=== PATIENT | male | born 1980 | race African-American/Black ===

== ENCOUNTER 2021-01-03 17:29 | Inpatient (IN) | payer OTHER, SELFPAY ==
[2021-01-03 17:45] VITALS: BP 167/87; PULSE 129; RESP 14; O2SAT 91
[2021-01-03] MEDS: Haloperidol Lactate 5 MG/ML VIAL IM ×2 (17:47→20:25)
[2021-01-03] MEDS: diphenhydrAMINE HCL 50 MG/ML VIAL IM (17:48)
[2021-01-03 17:51] VITALS: BP 167/87; BP 178/90; PULSE 111; PULSE 130; RESP 12; O2SAT 95; BMI 32.5
--- NOTE | 2021-01-03 18:12 | PC.NURSE ---
Pt arrived in handcuffs and in restraints with EMS. Pt transferred to ED bed and restraints kept in place. Pt medicated with IM benadryl and haldol. Pt noted to have a large amount of secretions, airway suctioned. Pt is on continuous oxygen, ETco2 and cardiac monitoring. Pt has a sitter at the bedside for continuos observation. Pt continues to pull at the restraints and is very restless.
--- NOTE | 2021-01-03 18:38 | ED.PSYCH ---
HPI - Psych General Chief Complaint: Psychiatric Symptoms <Denzel Diane MD - Last Filed: 01/04/21 01:43> Stated Complaint: crisis <Denzel Diane MD - Last Filed: 01/04/21 01:43> Time Seen by Provider: 01/03/21 17:42 <Denzel Diane MD - Last Filed: 01/04/21 01:43> Source: EMS <Denzel Diane MD - Last Filed: 01/04/21 01:43> Mode of arrival: EMS <Denzel Diane MD - Last Filed: 01/04/21 01:43> Limitations: altered mental status <Denzel Diane MD - Last Filed: 01/04/21 01:43> History of Present Illness HPI Narrative: 40-year-old male who was brought into the emergency department by EMS and police for evaluation of attempted suicide attempt and combative behavior. Apparently, the patient was spotted by the police on a bridge and the patient was trying to jump off the bridge. A precinct police lieutenant was able to stop the patient from jumping however the patient became combative and 6 officers were required to get the patient under control. Paramedics then administered ketamine 400 mg IM. According to the paramedics despite the ketamine the patient still was combative throughout the entire transport. On presentation, the patient is handcuffed, he is combative, he is altered and making non verbal grunting and growling noises, he is fighting against the handcuffs. I evaluated the patient immediately upon arrival and I determined that the patient still needed to be in restraints and needed further medications therefore with security and police assistance, the handcuffs removed, the patient was placed in 4 point restraints on the ED stretcher , he was given Haldol 5 mg IM and Benadryl 50 mg IM. <Denzel Diane MD - Last Filed: 01/04/21 01:43> Related Data Allergies/Adverse Reactions: Allergies Allergy/AdvReac Type Severity Reaction Status Date / Time acetaminophen [From VICODIN] Allergy Unknown ITCHY Unverified 12/31/19 14:47 From VICODIN Allergy Unknown ITCHY Uncoded 12/31/19 14:47 <Denzel Diane MD - Last Filed: 01/04/21 01:43> Review of Systems Review of Systems: Yes Unobtainable due to mental status <Denzel Diane MD - Last Filed: 01/04/21 01:43> [facility] Social History Social History: Social History Alcohol intake: unknown Patient Tobacco Use Status: Tobacco use Unknown Use of substances other than those prescribed or required for medical reasons: Unknown Advance Directives: No Advance Directives Information Provided: No <Denzel Diane MD - Last Filed: 01/04/21 01:43> Physical Exam Vital Signs: Vital Signs: Last Vital Signs Temp 98 F 01/03/21 20:00 Pulse 83 01/04/21 07:40 Resp 18 01/04/21 07:40 BP 169/99 H 01/04/21 07:40 Pulse Ox 97 01/04/21 07:40 Oxygen Flow Rate 4 01/03/21 17:51 Body Mass Index 32.5 <Denzel Diane MD - Last Filed: 01/04/21 01:43> Vital Signs: Last Vital Signs Temp 98 F 01/03/21 20:00 Pulse 83 01/04/21 07:40 Resp 18 01/04/21 07:40 BP 169/99 H 01/04/21 07:40 Pulse Ox 97 01/04/21 07:40 Oxygen Flow Rate 4 01/03/21 17:51 Body Mass Index 32.5 <RAN Jeffers - Last Filed: 01/04/21 09:57> Const: Other: Altered, male patient, the patient is diaphoretic, he is struggling against the handcuffs, he is making non verbal noises-growling and is trying to get off the stretcher and needs to be held down by police and by security. <Denzel Diane MD - Last Filed: 01/04/21 01:43> HENMT: Head: Yes normal to inspection, Yes normocephalic and Yes atraumatic <Denzel Diane MD - Last Filed: 01/04/21 01:43> Ears: external ears normal <Denzel Diane MD - Last Filed: 01/04/21 01:43> General nose exam: Normal external nose present <MD Diana Chavis Last Filed: 01/04/21 01:43> Face and sinus: Yes normal facial exam <MD Diana Chavis Last Filed: 01/04/21 01:43> Mouth: other (Patient is salivating and spitting) <MD Diana Chavis Last Filed: 01/04/21 01:43> Eyes: General: appearance normal, both eyes and all related structures <MD Diana Chavis Last Filed: 01/04/21 01:43> Conjunctivae: conjunctivae normal <MD Diana Chavis Last Filed: 01/04/21 01:43> Sclerae: sclerae normal <MD Diana Chavis Last Filed: 01/04/21 01:43> Pupils: Equal, round and reactive pupils present <MD Diana Chavis Last Filed: 01/04/21 01:43> Neck: Neck: Yes normal visual inspection, Yes no meningeal signs and Yes trachea midline <MD Diana Chavis Last Filed: 01/04/21 01:43> Chest: Chest palpation & inspection: normal inspection of the chest and normal palpation of entire chest wall <MD Diana Chavis Last Filed: 01/04/21 01:43> Resp: Effort & Inspection: normal respiratory effort <MD Diana Chavis Last Filed: 01/04/21 01:43> Auscultation: clear to auscultation bilaterally <MD Diana Chavis Last Filed: 01/04/21 01:43> Cardio: Rate: tachycardic <MD Diana Chavis Last Filed: 01/04/21 01:43> Rhythm: regular rhythm <MD Diana Chavis Last Filed: 01/04/21 01:43> Heart sounds: S1 normal heart sound present, S2 normal heart sound present and no murmurs <MD Diana Chavis Last Filed: 01/04/21 01:43> GI: Inspection: Yes normal to inspection <MD Diana Chavis Last Filed: 01/04/21 01:43> Palpation (GI): Soft to palpation, no guarding and not rigid <Denzel Diane MD - Last Filed: 01/04/21 01:43> Auscultation: normal bowel sounds <Denzel Diane MD - Last Filed: 01/04/21 01:43> Skin: Other: Diaphoretic, warm to the touch, no rashes or lesions noted <Denzel Diane MD - Last Filed: 01/04/21 01:43> Neuro: Other: Patient is altered secondary to ketamine administered prior to arrival, patient is combative, moves all extremities symmetrically, makes non verbal noises only, does not answer verbal questions <Denzel Diane MD - Last Filed: 01/04/21 01:43> General: no meningeal signs <MD Diana Chavis Last Filed: 01/04/21 01:43> Cranial nerves: Yes Equal, round and reactive pupils present <MD Diana Chavis Last Filed: 01/04/21 01:43> Extrem: General: Yes normal to inspection <Denzel Diane MD - Last Filed: 01/04/21 01:43> Course Course Course Narrative: 40-year-old male who was attempting to jump off a bridge and was stopped by police, the patient was combative and required 6 police officers to restrain him. The patient also received ketamine 400 mg IM prior to arriving in the emergency department secondary to his combative behavior. On presentation the patient was in handcuffs but still was fighting against the restraints and still appeared to be combative but altered secondary to the ketamine. The patient was transferred to the ED stretcher and placed in 4 point restraints by by security with the assistance of the police officers that came into the apartment with the patient. The patient was immediately given Haldol 5 mg IM and Benadryl 50 mg IM. 1845: Patient was re-evaluated, he is less combative but is still fighting against restraints therefore he was ordered to get a 2nd dose of Haldol 5 mg IM. I did order laboratory evaluation as well as IV fluid for the patient however he is still to combative to start this treatment obtain his lab tests. 2110: Patient's laboratory evaluation revealed a normal CBC, CMP revealed an elevated chloride of 111, elevated glucose 129, elevated AST and ALT of 46 and 50, and an elevated CK of 540. I do not think that any these elevations are significant, elevated CK is probably secondary to the patient's struggling against the restraints and fighting with the paramedics and police officers prior to coming to the emergency department. The patient was taken out of 4 point restraints by nursing staff and has been sleeping and has been cooperative since being removed from restraints. The patient's salicylate and acetaminophen levels were below detectable limits. Alcohol level was elevated 218. COVID-19 was negative. Urine tox screen is pending collection of the urine sample. At this point I believe the patient is medically cleared for crisis evaluation for suicidal ideation and suicide attempt at of jumping off a bridge. 0142: Physician observation started at 0142. Patient placed in physician observation because the patient has not been evaluated by [facility] crisis. At the time observation the patient is resting comfortably and is cooperative, vital signs are stable, his examination is normal. The patient's care will be turned over to my colleague, Dr. Jernigan. <Denzel Diane MD - Last Filed: 01/04/21 01:43> Reevaluation(s) Reevaluation #1: Physician observation continued. No acute overnight events. Has not required IM Haldol or Benadryl since 6pm last night. He is awaiting [facility] evaluation at this time. Sleeping comfortably. Sitter at the bedside. Will continue to monitor. <RAN Jeffers - Last Filed: 01/04/21 09:57> MDM - Psych Lab Data Result diagrams: : 01/03/21 19:57 01/03/21 19:57 <Denzel Diane MD - Last Filed: 01/04/21 01:43> Labs: Lab Results 01/03/21 01/03/21 01/03/21 Range/Units 19:49 19:56 19:57 WBC 6.6 (4.8-10.8) X10*3/uL RBC 4.53 L (4.60-5.80) X10*6/uL Hgb 14.1 (14.0-18.0) g/dl Hct 40.0 L (42-52) % MCV 88.3 (80-98) fL MCH 31.1 (27.0-33.0) pg MCHC 35.3 (31.0-36.0) g/dl RDW 12.4 (11.0-16.0) % Plt Count 213 (160-400) X10*3/uL MPV 9.9 (9.4-12.4) fL Immature Gran % (Auto) 0.6 H (0.0-0.4) % Neut % (Auto) 69.9 (45-73) % Lymph % (Auto) 19.5 L (20-40) % Hinds % (Auto) 8.5 (2-11) % Eos % (Auto) 1.2 (0-4) % Baso % (Auto) 0.3 (0-2) % Lymph # (Auto) 1.3 (1.2-4.9) X10*3/uL Hinds # (Auto) 0.6 (0.1-1.2) X10*3/uL Eos # (Auto) 0.1 (0.0-0.4) X10*3/uL Baso # (Auto) 0.0 (0.0-0.2) X10*3/uL Abs Immat Gran (auto) 0.04 H (0.00-0.03) X10*3/uL Absolute Neuts (auto) 4.6 (2.0-8.3) X10*3/uL Absolute Nucleated RBC 0.000 (0.0-0.012) X10*3/uL Nucleated RBC % (auto) 0.0 (0.0-0.2) /100WBC Sodium (135-145) mmol/L Potassium (3.3-5.1) mmol/L Chloride (96-108) mmol/L Carbon Dioxide (22-29) mmol/L Anion Gap (12-20) BUN (9-16) mg/dL Creatinine (0.5-1.4) mg/dL Estim Creat Clear Calc Estimated GFR Random Glucose (60-115) mg/dL Calcium (8.4-10.2) mg/dL Total Bilirubin (0.0-1.0) mg/dL AST (5-37) U/L ALT (0-40) U/L Alkaline Phosphatase (39-117) U/L Total Creatine Kinase (38-174) U/L Total Protein (6.5-8.0) g/dL Albumin (3.5-5.0) g/dL Lipase (8-78) U/L Salicylates < 5.0 L (15-30) mg/dL Urine Opiates Screen (Not Detect) Urine Fentanyl Screen (Not Detect) Acetaminophen (<30) mcg/mL Ur Barbiturates Screen (Not Detect) Ur Phencyclidine Scrn (Not Detect) Ur Amphetamines Screen (Not Detect) U Benzodiazepines Scrn (Not Detect) Urine Cocaine Screen (Not Detect) U Marijuana (THC) Screen (Not Detect) Ethyl Alcohol mg/dL COVID-19 (CLARA) Negative (Negative) COVID-19 Clin Com See Note 01/03/21 01/03/21 01/03/21 Range/Units 19:57 19:57 19:57 WBC (4.8-10.8) X10*3/uL RBC (4.60-5.80) X10*6/uL Hgb (14.0-18.0) g/dl Hct (42-52) % MCV (80-98) fL MCH (27.0-33.0) pg MCHC (31.0-36.0) g/dl RDW (11.0-16.0) % Plt Count (160-400) X10*3/uL MPV (9.4-12.4) fL Immature Gran % (Auto) (0.0-0.4) % Neut % (Auto) (45-73) % Lymph % (Auto) (20-40) % Hinds % (Auto) (2-11) % Eos % (Auto) (0-4) % Baso % (Auto) (0-2) % Lymph # (Auto) (1.2-4.9) X10*3/uL Hinds # (Auto) (0.1-1.2) X10*3/uL Eos # (Auto) (0.0-0.4) X10*3/uL Baso # (Auto) (0.0-0.2) X10*3/uL Abs Immat Gran (auto) (0.00-0.03) X10*3/uL Absolute Neuts (auto) (2.0-8.3) X10*3/uL Absolute Nucleated RBC (0.0-0.012) X10*3/uL Nucleated RBC % (auto) (0.0-0.2) /100WBC Sodium 144 (135-145) mmol/L Potassium 3.3 (3.3-5.1) mmol/L Chloride 111 H (96-108) mmol/L Carbon Dioxide 22 (22-29) mmol/L Anion Gap 14 (12-20) BUN 7 L (9-16) mg/dL Creatinine 0.90 (0.5-1.4) mg/dL Estim Creat Clear Calc 141.9 Estimated GFR > 60 Random Glucose 129 H (60-115) mg/dL Calcium 8.7 (8.4-10.2) mg/dL Total Bilirubin 0.6 (0.0-1.0) mg/dL AST 46 H (5-37) U/L ALT 50 H (0-40) U/L Alkaline Phosphatase 63 (39-117) U/L Total Creatine Kinase 540 H (38-174) U/L Total Protein 7.1 (6.5-8.0) g/dL Albumin 4.3 (3.5-5.0) g/dL Lipase 15 (8-78) U/L Salicylates (15-30) mg/dL Urine Opiates Screen (Not Detect) Urine Fentanyl Screen (Not Detect) Acetaminophen < 1 (<30) mcg/mL Ur Barbiturates Screen (Not Detect) Ur Phencyclidine Scrn (Not Detect) Ur Amphetamines Screen (Not Detect) U Benzodiazepines Scrn (Not Detect) Urine Cocaine Screen (Not Detect) U Marijuana (THC) Screen (Not Detect) Ethyl Alcohol 218 mg/dL COVID-19 (CLARA) (Negative) COVID-19 Clin Com 01/04/21 Range/Units 02:52 WBC (4.8-10.8) X10*3/uL RBC (4.60-5.80) X10*6/uL Hgb (14.0-18.0) g/dl Hct (42-52) % MCV (80-98) fL MCH (27.0-33.0) pg MCHC (31.0-36.0) g/dl RDW (11.0-16.0) % Plt Count (160-400) X10*3/uL MPV (9.4-12.4) fL Immature Gran % (Auto) (0.0-0.4) % Neut % (Auto) (45-73) % Lymph % (Auto) (20-40) % Hinds % (Auto) (2-11) % Eos % (Auto) (0-4) % Baso % (Auto) (0-2) % Lymph # (Auto) (1.2-4.9) X10*3/uL Hinds # (Auto) (0.1-1.2) X10*3/uL Eos # (Auto) (0.0-0.4) X10*3/uL Baso # (Auto) (0.0-0.2) X10*3/uL Abs Immat Gran (auto) (0.00-0.03) X10*3/uL Absolute Neuts (auto) (2.0-8.3) X10*3/uL Absolute Nucleated RBC (0.0-0.012) X10*3/uL Nucleated RBC % (auto) (0.0-0.2) /100WBC Sodium (135-145) mmol/L Potassium (3.3-5.1) mmol/L Chloride (96-108) mmol/L Carbon Dioxide (22-29) mmol/L Anion Gap (12-20) BUN (9-16) mg/dL Creatinine (0.5-1.4) mg/dL Estim Creat Clear Calc Estimated GFR Random Glucose (60-115) mg/dL Calcium (8.4-10.2) mg/dL Total Bilirubin (0.0-1.0) mg/dL AST (5-37) U/L ALT (0-40) U/L Alkaline Phosphatase (39-117) U/L Total Creatine Kinase (38-174) U/L Total Protein (6.5-8.0) g/dL Albumin (3.5-5.0) g/dL Lipase (8-78) U/L Salicylates (15-30) mg/dL Urine Opiates Screen Not Detected (Not Detect) Urine Fentanyl Screen POSITIVE H (Not Detect) Acetaminophen (<30) mcg/mL Ur Barbiturates Screen Not Detected (Not Detect) Ur Phencyclidine Scrn Not Detected (Not Detect) Ur Amphetamines Screen Not Detected (Not Detect) U Benzodiazepines Scrn Not Detected (Not Detect) Urine Cocaine Screen POSITIVE H (Not Detect) U Marijuana (THC) Screen Not Detected (Not Detect) Ethyl Alcohol mg/dL COVID-19 (CLARA) (Negative) COVID-19 Clin Com <Denzel Diane MD - Last Filed: 01/04/21 01:43> Lab Results 01/03/21 01/03/21 01/03/21 Range/Units 19:49 19:56 19:57 WBC 6.6 (4.8-10.8) X10*3/uL RBC 4.53 L (4.60-5.80) X10*6/uL Hgb 14.1 (14.0-18.0) g/dl Hct 40.0 L (42-52) % MCV 88.3 (80-98) fL MCH 31.1 (27.0-33.0) pg MCHC 35.3 (31.0-36.0) g/dl RDW 12.4 (11.0-16.0) % Plt Count 213 (160-400) X10*3/uL MPV 9.9 (9.4-12.4) fL Immature Gran % (Auto) 0.6 H (0.0-0.4) % Neut % (Auto) 69.9 (45-73) % Lymph % (Auto) 19.5 L (20-40) % Hinds % (Auto) 8.5 (2-11) % Eos % (Auto) 1.2 (0-4) % Baso % (Auto) 0.3 (0-2) % Lymph # (Auto) 1.3 (1.2-4.9) X10*3/uL Hinds # (Auto) 0.6 (0.1-1.2) X10*3/uL Eos # (Auto) 0.1 (0.0-0.4) X10*3/uL Baso # (Auto) 0.0 (0.0-0.2) X10*3/uL Abs Immat Gran (auto) 0.04 H (0.00-0.03) X10*3/uL Absolute Neuts (auto) 4.6 (2.0-8.3) X10*3/uL Absolute Nucleated RBC 0.000 (0.0-0.012) X10*3/uL Nucleated RBC % (auto) 0.0 (0.0-0.2) /100WBC Sodium (135-145) mmol/L Potassium (3.3-5.1) mmol/L Chloride (96-108) mmol/L Carbon Dioxide (22-29) mmol/L Anion Gap (12-20) BUN (9-16) mg/dL Creatinine (0.5-1.4) mg/dL Estim Creat Clear Calc Estimated GFR Random Glucose (60-115) mg/dL Calcium (8.4-10.2) mg/dL Total Bilirubin (0.0-1.0) mg/dL AST (5-37) U/L ALT (0-40) U/L Alkaline Phosphatase (39-117) U/L Total Creatine Kinase (38-174) U/L Total Protein (6.5-8.0) g/dL Albumin (3.5-5.0) g/dL Lipase (8-78) U/L Salicylates < 5.0 L (15-30) mg/dL Urine Opiates Screen (Not Detect) Urine Fentanyl Screen (Not Detect) Acetaminophen (<30) mcg/mL Ur Barbiturates Screen (Not Detect) Ur Phencyclidine Scrn (Not Detect) Ur Amphetamines Screen (Not Detect) U Benzodiazepines Scrn (Not Detect) Urine Cocaine Screen (Not Detect) U Marijuana (THC) Screen (Not Detect) Ethyl Alcohol mg/dL COVID-19 (CLARA) Negative (Negative) COVID-19 Clin Com See Note 01/03/21 01/03/21 01/03/21 Range/Units 19:57 19:57 19:57 WBC (4.8-10.8) X10*3/uL RBC (4.60-5.80) X10*6/uL Hgb (14.0-18.0) g/dl Hct (42-52) % MCV (80-98) fL MCH (27.0-33.0) pg MCHC (31.0-36.0) g/dl RDW (11.0-16.0) % Plt Count (160-400) X10*3/uL MPV (9.4-12.4) fL Immature Gran % (Auto) (0.0-0.4) % Neut % (Auto) (45-73) % Lymph % (Auto) (20-40) % Hinds % (Auto) (2-11) % Eos % (Auto) (0-4) % Baso % (Auto) (0-2) % Lymph # (Auto) (1.2-4.9) X10*3/uL Hinds # (Auto) (0.1-1.2) X10*3/uL Eos # (Auto) (0.0-0.4) X10*3/uL Baso # (Auto) (0.0-0.2) X10*3/uL Abs Immat Gran (auto) (0.00-0.03) X10*3/uL Absolute Neuts (auto) (2.0-8.3) X10*3/uL Absolute Nucleated RBC (0.0-0.012) X10*3/uL Nucleated RBC % (auto) (0.0-0.2) /100WBC Sodium 144 (135-145) mmol/L Potassium 3.3 (3.3-5.1) mmol/L Chloride 111 H (96-108) mmol/L Carbon Dioxide 22 (22-29) mmol/L Anion Gap 14 (12-20) BUN 7 L (9-16) mg/dL Creatinine 0.90 (0.5-1.4) mg/dL Estim Creat Clear Calc 141.9 Estimated GFR > 60 Random Glucose 129 H (60-115) mg/dL Calcium 8.7 (8.4-10.2) mg/dL Total Bilirubin 0.6 (0.0-1.0) mg/dL AST 46 H (5-37) U/L ALT 50 H (0-40) U/L Alkaline Phosphatase 63 (39-117) U/L Total Creatine Kinase 540 H (38-174) U/L Total Protein 7.1 (6.5-8.0) g/dL Albumin 4.3 (3.5-5.0) g/dL Lipase 15 (8-78) U/L Salicylates (15-30) mg/dL Urine Opiates Screen (Not Detect) Urine Fentanyl Screen (Not Detect) Acetaminophen < 1 (<30) mcg/mL Ur Barbiturates Screen (Not Detect) Ur Phencyclidine Scrn (Not Detect) Ur Amphetamines Screen (Not Detect) U Benzodiazepines Scrn (Not Detect) Urine Cocaine Screen (Not Detect) U Marijuana (THC) Screen (Not Detect) Ethyl Alcohol 218 mg/dL COVID-19 (CLARA) (Negative) COVID-19 Clin Com 01/04/21 Range/Units 02:52 WBC (4.8-10.8) X10*3/uL RBC (4.60-5.80) X10*6/uL Hgb (14.0-18.0) g/dl Hct (42-52) % MCV (80-98) fL MCH (27.0-33.0) pg MCHC (31.0-36.0) g/dl RDW (11.0-16.0) % Plt Count (160-400) X10*3/uL MPV (9.4-12.4) fL Immature Gran % (Auto) (0.0-0.4) % Neut % (Auto) (45-73) % Lymph % (Auto) (20-40) % Hinds % (Auto) (2-11) % Eos % (Auto) (0-4) % Baso % (Auto) (0-2) % Lymph # (Auto) (1.2-4.9) X10*3/uL Hinds # (Auto) (0.1-1.2) X10*3/uL Eos # (Auto) (0.0-0.4) X10*3/uL Baso # (Auto) (0.0-0.2) X10*3/uL Abs Immat Gran (auto) (0.00-0.03) X10*3/uL Absolute Neuts (auto) (2.0-8.3) X10*3/uL Absolute Nucleated RBC (0.0-0.012) X10*3/uL Nucleated RBC % (auto) (0.0-0.2) /100WBC Sodium (135-145) mmol/L Potassium (3.3-5.1) mmol/L Chloride (96-108) mmol/L Carbon Dioxide (22-29) mmol/L Anion Gap (12-20) BUN (9-16) mg/dL Creatinine (0.5-1.4) mg/dL Estim Creat Clear Calc Estimated GFR Random Glucose (60-115) mg/dL Calcium (8.4-10.2) mg/dL Total Bilirubin (0.0-1.0) mg/dL AST (5-37) U/L ALT (0-40) U/L Alkaline Phosphatase (39-117) U/L Total Creatine Kinase (38-174) U/L Total Protein (6.5-8.0) g/dL Albumin (3.5-5.0) g/dL Lipase (8-78) U/L Salicylates (15-30) mg/dL Urine Opiates Screen Not Detected (Not Detect) Urine Fentanyl Screen POSITIVE H (Not Detect) Acetaminophen (<30) mcg/mL Ur Barbiturates Screen Not Detected (Not Detect) Ur Phencyclidine Scrn Not Detected (Not Detect) Ur Amphetamines Screen Not Detected (Not Detect) U Benzodiazepines Scrn Not Detected (Not Detect) Urine Cocaine Screen POSITIVE H (Not Detect) U Marijuana (THC) Screen Not Detected (Not Detect) Ethyl Alcohol mg/dL COVID-19 (CLARA) (Negative) COVID-19 Clin Com <RAN Jeffers - Last Filed: 01/04/21 09:57> Discharge Plan Discharge Clinical Impression: Suicidal ideation <Denzel Diane MD - Last Filed: 01/04/21 01:43>
--- NOTE | 2021-01-03 19:47 | PC.NURSE ---
Patient is currently asleep. Will trial a restraint removal of left leg
--- NOTE | 2021-01-03 19:53 | PC.NURSE ---
Patient agreeable to labs being drawn. Will trial a restraint release post blood draw.
[2021-01-03 20:00] VITALS: BP 119/84; PULSE 98; RESP 20; TEMP 36.6; O2SAT 98
[2021-01-03 20:04] LABS: MANUAL DIFF FLAG NO
[2021-01-03 20:06] LABS: Basophils Percent Auto 0.3 % (0-2); Eosinophils Absolute Auto 0.1 X10*3/uL (0.0-0.4); Eosinophils Percent Auto 1.2 % (0-4); Hemoglobin 14.1 g/dl (14.0-18.0); Imm Gran Abs Auto 0.04 X10*3/uL (0.00-0.03); Imm Gran Pct Auto 0.6 % (0.0-0.4); Lymphocytes Absolute Auto 1.3 X10*3/uL (1.2-4.9); Lymphocytes Percent Auto 19.5 % (20-40); Mean Corpuscular HGB Conc 35.3 g/dl (31.0-36.0); Mean Corpuscular Hemoglobin 31.1 pg (27.0-33.0); Mean Corpuscular Volume 88.3 fL (80-98); Mean Platelet Volume 9.9 fL (9.4-12.4); Monocytes Absolute Auto 0.6 X10*3/uL (0.1-1.2); Monocytes Percent Auto 8.5 % (2-11); Neutrophils Absolute Auto 4.6 X10*3/uL (2.0-8.3); Neutrophils Percent Auto 69.9 % (45-73); Platelet Count 213 X10*3/uL (160-400); Red Blood Count 4.53 X10*6/uL (4.60-5.80); Red Cell Distribution Width 12.4 % (11.0-16.0); White Blood Count 6.6 X10*3/uL (4.8-10.8)
[2021-01-03 20:18] LABS: Ethanol 218 mg/dL
[2021-01-03 20:20] LABS: Salicylate < 5.0 mg/dL (15-30)
[2021-01-03 20:20] LABS: Lipase 15 U/L (8-78)
[2021-01-03 20:22] LABS: Acetaminophen LAB < 1 mcg/mL (<30); Alanine Aminotransferase 50 U/L (0-40); Albumin Level 4.3 g/dL (3.5-5.0); Alkaline Phosphatase 63 U/L (39-117); Anion Gap 14 (12-20); Aspartate Amino Transferase 46 U/L (5-37); Bilirubin Total 0.6 mg/dL (0.0-1.0); Blood Urea Nitrogen 7 mg/dL (9-16); Calcium 8.7 mg/dL (8.4-10.2); Carbon Dioxide 22 mmol/L (22-29); Chloride 111 mmol/L (96-108); Creatinine Clr Calc Pharmacy 141.9; Estimated Glomerular Filt Rate > 60; Glucose Random 129 mg/dL (60-115); Potassium 3.3 mmol/L (3.3-5.1); Sodium 144 mmol/L (135-145); Total Protein 7.1 g/dL (6.5-8.0)
[2021-01-03 20:25] LABS: COVID-19 Test Negative (Negative)
[2021-01-03 22:00] VITALS: BP 119/84; PULSE 94; RESP 28
[2021-01-04] VITALS (8 sets, daily range): BP systolic 100–169; BP diastolic 64–99; PULSE 77–94; RESP 14–18; TEMP 36.6–37.1; O2SAT 96–98
--- NOTE | 2021-01-04 | ECG_ITS ---
Test Reason : MED CLEARANCE Blood Pressure : / mmHG Vent. Rate : 078 BPM Atrial Rate : 078 BPM P-R Int : 150 ms QRS Dur : 096 ms QT Int : 372 ms P-R-T Axes : 033 -30 037 degrees QTc Int : 424 ms Normal sinus rhythm Left axis deviation Abnormal ECG No previous ECGs available Referred By: Graeme Llanos Electronically Signed By:BRANDON WOLFF
[2021-01-04 03:16] LABS: Amphetamine Screen Urine Not Detected (Not Detect); Barbiturates, Urine Not Detected (Not Detect); Benzodiazepines Screen Urine Not Detected (Not Detect); Cannabinoid Screen Urine Not Detected (Not Detect); Cocaine Screen Urine POSITIVE (Not Detect); Fentanyl, urine POSITIVE (Not Detect); Opiate Screen Urine Not Detected (Not Detect); Phencyclidine Screen Urine Not Detected (Not Detect)
--- NOTE | 2021-01-04 07:30 | PC.NURSE ---
PT IS SLEEPING RESP EVEN AND UNLABORED. 1:1 SITTER AT BEDSIDE.
--- NOTE | 2021-01-04 07:45 | PC.NURSE ---
pt a/o x 3 no sob/ver[place] noted skin pink warm dry speaks in full sentences. pt ate 100% of breakfast. pt denies any si/hi.
--- NOTE | 2021-01-04 08:20 | PC.NURSE ---
paperwork faxed annika.
[2021-01-04] MEDS: LORazepam 1 MG TABLET 2 MG PO ×2 (12:37→21:21)
--- NOTE | 2021-01-04 19:58 | PC.ADMIT ---
Nursing admission note: Patient 40 year old male DX: Major Depressive disorder, Cocaine use disorder. Referred for admission by CARE team. Signed conditional voluntary. Patient engages however vague with responses. Responds to questions however offers little spontaneous interaction. Patient presented as sleepy, appearing to nod off during interview. Easily aroused when named was called. Patient is A+O x3. Calm and cooperative with admission process. Intermittent eye contact. Patient denies SI/HI plan or intent at this time. Denies anxiety or depression. Denies perceptual disturbances. Per crisis evaluation patient was brought to ED by EMS and police for evaluation following what appeared to be a suicide attempt, followed by combative behavior. Patient appeared to be preparing to jump off a bridge as responding police officers arrived to the scene. Patient required physical and chemical restraint at the time, and following arrival to ED. Patient Patient reports use of pain medication and alcohol. States he drinks throughout the day, 10 nips , almost daily . Last use prior to admission. TOX screen positive for Fentanyl and Cocaine. BAL 218. Reports he has used Suboxone in the past. Denies current treatment providers. Denies prior inpatient admissions, per crisis evaluation prior suicide attempt 4 years ago. Denies medical problems, denies having PCP. Allergy to Acetaminophen and vicoden. Reports he is not currently on medication. COVID negative. No reported withdrawal sx at this time. Patient was oriented to unit, placed on CIWA and unit checks. See nursing assessment/crisis evaluation for further details.
[2021-01-04] MEDS: traZODone HCL 50 MG TABLET PO (21:21)
[2021-01-04] MEDS: hydrOXYzine HCL 25 MG TABLET PO (21:21)
[2021-01-05 08:33] VITALS: BP 140/70; PULSE 67; RESP 16; TEMP 36.8; O2SAT 95
[2021-01-05] MEDS: Loperamide HCl 2 MG CAPSULE PO (08:39)
[2021-01-05 12:00] VITALS: BP 155/107; PULSE 107; RESP 18
[2021-01-05 12:48] VITALS: BP 155/104; PULSE 107
[2021-01-05] MEDS: Dicyclomine HCl 10 MG CAPSULE PO (12:48)
[2021-01-05] MEDS: LORazepam 1 MG TABLET 2 MG PO ×2 (12:48→21:07)
[2021-01-05] MEDS: cloNIDine HCL 0.1 MG TABLET PO ×2 (12:48→21:07)
[2021-01-05] MEDS: Ibuprofen 800 MG TABLET PO ×2 (12:49→21:07)
[2021-01-05] MEDS: methADONE HCl 20 MG/2 ML ORAL.CONC PO (15:47)
[2021-01-05 16:00] VITALS: BP 180/107; PULSE 107; RESP 16
--- NOTE | 2021-01-05 16:22 | MHC.RECOVRN ---
T/w met with pt in consult room on M3 after consult placed to Addiction Medicine. Pt reports age of 1st opiate use was 27 after knee injury, pt has never used substances IV. Pt denies family hx substance use. Pt reports using 20-25 Perc 30s daily x 1 year, last use Saturday; alcohol, 40-50 nips daily x a few years , last use Saturday; cocaine, [place], $20-$30 here and there, last use Saturday. Pt reports having been on and off Suboxone for years, most recently pt reports being prescribed 24 mg daily x 2 years through [facility] in [place] approx 2 years ago. Pt attempted to transition to methadone at [facility], however, was unaware he would have to go daily. Pt reports going a few times and receiving 120 mg. This was also approx 2 years ago. Pt reports treatment hx: [facility] x 2, [facility] x 4. Last time in treatment was . Pt reports 4 overdoses requiring Narcan, last in mid 2019. Pts current withdrawal symptoms include body aches, hot/cold flashes, and diarrhea. Pt would like to be linked to [facility] and has a picture ID. Discussed with Renea Talamantes APRN. .
--- NOTE | 2021-01-05 18:14 | HO.PSYADMNOT ---
HPI Chief Complaint: suicide attempt HPI Narrative: per ED Note: 40-year-old male who was brought into the emergency department by EMS and police for evaluation of attempted suicide attempt and combative behavior.? Apparently, the patient was spotted by the police on a bridge and the patient was trying to jump off the bridge.? A [place] 9 police officer was able to stop the patient from jumping however the patient became combative and 6 officers were required to get the patient under control.? Paramedics then administered ketamine 400 mg IM.? According to the paramedics despite the ketamine the patient still was combative throughout the entire transport.? On presentation, the patient is handcuffed, he is combative, he is altered and making non verbal grunting and growling noises, he is fighting against the handcuffs.? I evaluated the patient immediately upon arrival and I determined that the patient still needed to be in restraints and needed further medications therefore with security and police assistance, the handcuffs removed, the patient was placed in 4 point restraints on the ED stretcher , he was given Haldol 5 mg IM and Benadryl 50 mg IM. on interview with MD on psych floor, pt presents with a certain insouciance. he minimizes events and shrugs off any concern for anxiety or depression. he expresses interest in symptomatic relief of his opioid withdrawal syndrome and aftercare with a methadone or suboxone clinic. he states the events of the other night were just about having bought drugs from someone he'd never bought from before. he c/o nausea, diarrhea, cramps, and vomiting. he states he has been using opioids daily recently and cocaine not as much. Past Psychiatric History: no h/o psych hosp h/o SA x1 about 4 years ago via overdose. per pt, this was accidental. denies any trauma Hx, h/o depression, anxiety, or psychosis. no outpt mental health Tx. Medical Evaluation Reviewed: Yes [facility] Social History: grew up in [place], [place]. lived with mother and two sisters. 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 currently unemployed. engaged to be . has two sons at home, 7 yo and 2 yo. Substance History: opioids - h/o methadone maintenance, h/o suboxone maintenance. recent heavy use. cocaine - pt reports intermittent use Trauma History: denies Diagnostics Vital Signs (24Hr): Vital Signs - 24 hr 01/04/21 21:39 01/05/21 08:33 01/05/21 12:00 Temperature 97.9 F 98.2 F Pulse Rate 94 67 107 H Respiratory Rate 16 18 Blood Pressure 164/94 H 140/70 H 155/107 H Pulse Oximetry 97 95 01/05/21 12:48 01/05/21 16:00 Temperature Pulse Rate 107 H 107 H Respiratory Rate 16 Blood Pressure 155/104 H 180/107 H Pulse Oximetry Body Mass Index 32.5 Labs Results: 01/03/21 19:57 01/03/21 19:57 Labs: Laboratory Results - last 48 hr 01/03/21 01/03/21 01/03/21 19:49 19:56 19:57 WBC 6.6 RBC 4.53 L Hgb 14.1 Hct 40.0 L MCV 88.3 MCH 31.1 MCHC 35.3 RDW 12.4 Plt Count 213 MPV 9.9 Immature Gran % (Auto) 0.6 H Neut % (Auto) 69.9 Lymph % (Auto) 19.5 L [place] % (Auto) 8.5 Eos % (Auto) 1.2 Baso % (Auto) 0.3 Lymph # (Auto) 1.3 [place] # (Auto) 0.6 Eos # (Auto) 0.1 Baso # (Auto) 0.0 Abs Immat Gran (auto) 0.04 H Absolute Neuts (auto) 4.6 Absolute Nucleated RBC 0.000 Nucleated RBC % (auto) 0.0 Sodium Potassium Chloride Carbon Dioxide Anion Gap BUN Creatinine Estim Creat Clear Calc Estimated GFR Random Glucose Calcium Total Bilirubin AST ALT Alkaline Phosphatase Total Creatine Kinase Total Protein Albumin Lipase Salicylates < 5.0 L Urine Opiates Screen Urine Fentanyl Screen Acetaminophen Ur Barbiturates Screen Ur Phencyclidine Scrn Ur Amphetamines Screen U Benzodiazepines Scrn Urine Cocaine Screen U Marijuana (THC) Screen Ethyl Alcohol COVID-19 (CLARA) Negative COVID-19 Clin Com See Note 01/03/21 01/03/21 01/03/21 19:57 19:57 19:57 WBC RBC Hgb Hct MCV MCH MCHC RDW Plt Count MPV Immature Gran % (Auto) Neut % (Auto) Lymph % (Auto) [place] % (Auto) Eos % (Auto) Baso % (Auto) Lymph # (Auto) [place] # (Auto) Eos # (Auto) Baso # (Auto) Abs Immat Gran (auto) Absolute Neuts (auto) Absolute Nucleated RBC Nucleated RBC % (auto) Sodium 144 Potassium 3.3 Chloride 111 H Carbon Dioxide 22 Anion Gap 14 BUN 7 L Creatinine 0.90 Estim Creat Clear Calc 141.9 Estimated GFR > 60 Random Glucose 129 H Calcium 8.7 Total Bilirubin 0.6 AST 46 H ALT 50 H Alkaline Phosphatase 63 Total Creatine Kinase 540 H Total Protein 7.1 Albumin 4.3 Lipase 15 Salicylates Urine Opiates Screen Urine Fentanyl Screen Acetaminophen < 1 Ur Barbiturates Screen Ur Phencyclidine Scrn Ur Amphetamines Screen U Benzodiazepines Scrn Urine Cocaine Screen U Marijuana (THC) Screen Ethyl Alcohol 218 COVID-19 (CLARA) COVID-19 [place] 01/04/21 02:52 WBC RBC Hgb Hct MCV MCH MCHC RDW Plt Count MPV Immature Gran % (Auto) Neut % (Auto) Lymph % (Auto) [place] % (Auto) Eos % (Auto) Baso % (Auto) Lymph # (Auto) [place] # (Auto) Eos # (Auto) Baso # (Auto) Abs Immat Gran (auto) Absolute Neuts (auto) Absolute Nucleated RBC Nucleated RBC % (auto) Sodium Potassium Chloride Carbon Dioxide Anion Gap BUN Creatinine Estim Creat Clear Calc Estimated GFR Random Glucose Calcium Total Bilirubin AST ALT Alkaline Phosphatase Total Creatine Kinase Total Protein Albumin Lipase Salicylates Urine Opiates Screen Not Detected Urine Fentanyl Screen POSITIVE H Acetaminophen Ur Barbiturates Screen Not Detected Ur Phencyclidine Scrn Not Detected Ur Amphetamines Screen Not Detected U Benzodiazepines Scrn Not Detected Urine Cocaine Screen POSITIVE H U Marijuana (THC) Screen Not Detected Ethyl Alcohol COVID-19 (CLARA) COVID-19 [employer] Com Meds/Allergies Meds Home Medications Al Hydroxide/Mg Hydroxide (Magnesium Hydrox/Alum Hydrox 30 Ml Oral.Susp) 30 ml PO Q6H PRN PRN Reason: Heartburn/Nausea Clonidine HCl (Clonidine Hcl 0.1 Mg Tablet) 0.1 mg PO Q2H PRN; Protocol PRN Reason: opioid withdrawal symptoms Last Admin: 01/05/21 12:48 Dose: 0.1 mg Documented by: Dicyclomine HCl (Dicyclomine Hcl 10 Mg Capsule) 10 mg PO QIDACHS PRN PRN Reason: cramps Last Admin: 01/05/21 12:48 Dose: 10 mg Documented by: Hydroxyzine HCl (Hydroxyzine Hcl 25 Mg Tablet) 25 mg PO Q4H PRN PRN Reason: Anxiety Ibuprofen (Ibuprofen 800 Mg Tablet) 800 mg PO Q6H PRN PRN Reason: aches Last Admin: 01/05/21 12:49 Dose: 800 mg Documented by: Lorazepam (Lorazepam 1 Mg Tablet) 2 mg PO Q2H PRN PRN Reason: Breakthrough alcohol withdrawa Stop: 01/08/21 17:14 Last Admin: 01/05/21 12:48 Dose: 2 mg Documented by: Magnesium Hydroxide (Milk Of Magnesia 30 Ml Oral.Susp) 30 ml PO DAILY PRN PRN Reason: Constipation Nicotine Polacrilex (Nicotine Polacrilex 2 Mg Gum) 4 mg BUCCAL Q2H PRN PRN Reason: Nicotine Cravings Quetiapine Fumarate (Quetiapine Fumarate 50 Mg Tablet) 50 mg PO BEDTIME KIMO Trazodone HCl (Trazodone Hcl 50 Mg Tablet) 50 mg PO BEDTIME PRN PRN Reason: Insomnia Last Admin: 01/04/21 21:21 Dose: 50 mg Documented by: Trazodone HCl (Trazodone Hcl 50 Mg Tablet) 50 mg PO BEDTIME KIMO Allergies Allergies Allergy/AdvReac Type Severity Reaction Status Date / Time acetaminophen [From VICODIN] Allergy Unknown ITCHY Unverified 12/31/19 14:47 From VICODIN Allergy Unknown ITCHY Uncoded 12/31/19 14:47 Mental Status Exam Mental Status Exam Narrative: appropriately dressed and groomed. cooperative. no PMA/PMR. speech soft, spontaneous, nml rate amount. thoughts linear and logical. affect full range, not consistent with recent events, normo-intense, non-labile. mood great! denies SI/HI/AVH. Assessment & Plan Assessment & Plan (1) Opioid use disorder: Status: Acute Code(s): F11.99 - Opioid use, unspecified with unspecified opioid-induced disorder (2) Cocaine use disorder: Status: Acute Code(s): F14.10 - Cocaine abuse, uncomplicated (3) Unspecified mood [affective] disorder: Status: Acute Code(s): F39 - Unspecified mood [affective] disorder Assessment and Plan: pt denies any mood problems. blames his recent behavior on intoxication. methadone 20 mg x1 for opioid withdrawal symptoms. symptomatic Tx for cocaine withdrawal and other opioid withdrawal Sx. referral to methadone versus suboxone Tx programs. Reason for continued inpatient stay Substantial Risk for: med/psych decompensation
--- NOTE | 2021-01-05 18:49 | HO.ADDICT_ITS ---
History of Present Illness Date of Service: 01/05/2021 Chief Complaint: suicide attempt Reason for Consult: OUD patient requesting methadone Requesting physician: Graeme Llanos Sources of Information: patient interviewed and chart reviewed Additional Sources of Information: Recovery support RN HPI Narrative: Patient is a 40 year old male currently psychiatrically admitted following reported suicide attempt. Patient reported OUD and requestingmethadone so consult requested. History of substance use obtained by RSRN: -several years of using perceocet. denies any history of heroin use (age of first use 27) -reports using 20-25 perc 30's QD IN. Last use reported as being prior to admission -reports 4 lifetime overdoses -history of MOUD--both methadone and suboxone (most recently 02/2020) -Numerous admissions to [facility] -Reports drinking 4-50 nips per day and last drink was prior to admission (Saturday) Denies any family history of addiction Current withdrawal sx reported as chills, diaphoresis, loose stools. Of note, patient did not appear to be in any distress or discomfort, noted to be walking around the until comfortably engaging with peers. 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 At time of interview patient had already recieved 20mg methadone for OUD withdrawal sx and was receiving lorazepam to address alcohol withdrawals. Past Psychiatric History: no h/o psych hosp h/o SA x1 about 4 years ago via overdose. per pt, this was accidental. denies any trauma Hx, h/o depression, anxiety, or psychosis. no outpt mental health Tx. Review of Systems Review of Systems as noted in HPI Diagnostics Vital Signs (24Hr): Vital Signs - 24 hr 01/04/21 21:39 01/05/21 08:33 01/05/21 12:00 Temperature 97.9 F 98.2 F Pulse Rate 94 67 107 H Respiratory Rate 16 18 Blood Pressure 164/94 H 140/70 H 155/107 H Pulse Oximetry 97 95 01/05/21 12:48 01/05/21 16:00 Temperature Pulse Rate 107 H 107 H Respiratory Rate 16 Blood Pressure 155/104 H 180/107 H Pulse Oximetry Body Mass Index 32.5 Labs Results: 01/03/21 19:57 01/03/21 19:57 Labs: Laboratory Results - last 48 hr 01/03/21 01/03/2121 19:49 19:56 19:57 WBC 6.6 RBC 4.53 L Hgb 14.1 Hct 40.0 L MCV 88.3 MCH 31.1 MCHC 35.3 RDW 12.4 Plt Count 213 MPV 9.9 Immature Gran % (Auto) 0.6 H Neut % (Auto) 69.9 Lymph % (Auto) 19.5 L [place] % (Auto) 8.5 Eos % (Auto) 1.2 Baso % (Auto) 0.3 Lymph # (Auto) 1.3 [place] # (Auto) 0.6 Eos # (Auto) 0.1 Baso # (Auto) 0.0 Abs Immat Gran (auto) 0.04 H Absolute Neuts (auto) 4.6 Absolute Nucleated RBC 0.000 Nucleated RBC % (auto) 0.0 Sodium Potassium Chloride Carbon Dioxide Anion Gap BUN Creatinine Estim Creat Clear Calc Estimated GFR Random Glucose Calcium Total Bilirubin AST ALT Alkaline Phosphatase Total Creatine Kinase Total Protein Albumin Lipase Salicylates < 5.0 L Urine Opiates Screen Urine Fentanyl Screen Acetaminophen Ur Barbiturates Screen Ur Phencyclidine Scrn Ur Amphetamines Screen U Benzodiazepines Scrn Urine Cocaine Screen U Marijuana (THC) Screen Ethyl Alcohol COVID-19 (CLARA) Negative COVID-19 Clin Com See Note 01/03/21 01/03/21 01/03/21 19:57 19:57 19:57 WBC RBC Hgb Hct MCV MCH MCHC RDW Plt Count MPV Immature Gran % (Auto) Neut % (Auto) Lymph % (Auto) [place] % (Auto) Eos % (Auto) Baso % (Auto) Lymph # (Auto) [place] # (Auto) Eos # (Auto) Baso # (Auto) Abs Immat Gran (auto) Absolute Neuts (auto) Absolute Nucleated RBC Nucleated RBC % (auto) Sodium 144 Potassium 3.3 Chloride 111 H Carbon Dioxide 22 Anion Gap 14 BUN 7 L Creatinine 0.90 Estim Creat Clear Calc 141.9 Estimated GFR > 60 Random Glucose 129 H Calcium 8.7 Total Bilirubin 0.6 AST 46 H ALT 50 H Alkaline Phosphatase 63 Total Creatine Kinase 540 H Total Protein 7.1 Albumin 4.3 Lipase 15 Salicylates Urine Opiates Screen Urine Fentanyl Screen Acetaminophen < 1 Ur Barbiturates Screen Ur Phencyclidine Scrn Ur Amphetamines Screen U Benzodiazepines Scrn Urine Cocaine Screen U Marijuana (THC) Screen Ethyl Alcohol 218 COVID-19 (CLARA) COVID-19 [employer] Com 01/04/21 02:52 WBC RBC Hgb Hct MCV MCH MCHC RDW Plt Count MPV Immature Gran % (Auto) Neut % (Auto) Lymph % (Auto) [place] % (Auto) Eos % (Auto) Baso % (Auto) Lymph # (Auto) [place] # (Auto) Eos # (Auto) Baso # (Auto) Abs Immat Gran (auto) Absolute Neuts (auto) Absolute Nucleated RBC Nucleated RBC % (auto) Sodium Potassium Chloride Carbon Dioxide Anion Gap BUN Creatinine Estim Creat Clear Calc Estimated GFR Random Glucose Calcium Total Bilirubin AST ALT Alkaline Phosphatase Total Creatine Kinase Total Protein Albumin Lipase Salicylates Urine Opiates Screen Not Detected Urine Fentanyl Screen POSITIVE H Acetaminophen Ur Barbiturates Screen Not Detected Ur Phencyclidine Scrn Not Detected Ur Amphetamines Screen Not Detected U Benzodiazepines Scrn Not Detected Urine Cocaine Screen POSITIVE H U Marijuana (THC) Screen Not Detected Ethyl Alcohol COVID-19 (CLARA) COVID-19 Clin Com Mental Status Exam Mental Status Exam Patient Appearance: Appropriate Patient Orientation: Person, Place, Time and Situation Level of Consciousness: Awake, Appropriate and Alert Mood Description: Calm and Appropriate Affect Description: Calm and Appropriate Ability to Follow Directions: Excellent Speech Pattern: Clear Thought Process: Intact Thought Content: positive for Linear Judgement: Fair Medications Medications Current Medications Al Hydroxide/Mg Hydroxide (Magnesium Hydrox/Alum Hydrox 30 Ml Oral.Susp) 30 ml PO Q6H PRN PRN Reason: Heartburn/Nausea Clonidine HCl (Clonidine Hcl 0.1 Mg Tablet) 0.1 mg PO Q2H PRN; Protocol PRN Reason: opioid withdrawal symptoms Last Admin: 01/05/21 12:48 Dose: 0.1 mg Documented by: Dicyclomine HCl (Dicyclomine Hcl 10 Mg Capsule) 10 mg PO QIDACHS PRN PRN Reason: cramps Last Admin: 01/05/21 12:48 Dose: 10 mg Documented by: Hydroxyzine HCl (Hydroxyzine Hcl 25 Mg Tablet) 25 mg PO Q4H PRN PRN Reason: Anxiety Ibuprofen (Ibuprofen 800 Mg Tablet) 800 mg PO Q6H PRN PRN Reason: aches Last Admin: 01/05/21 12:49 Dose: 800 mg Documented by: Lorazepam (Lorazepam 1 Mg Tablet) 2 mg PO Q2H PRN PRN Reason: Breakthrough alcohol withdrawa Stop: 01/08/21 17:14 Last Admin: 01/05/21 12:48 Dose: 2 mg Documented by: Magnesium Hydroxide (Milk Of Magnesia 30 Ml Oral.Susp) 30 ml PO DAILY PRN PRN Reason: Constipation Nicotine Polacrilex (Nicotine Polacrilex 2 Mg Gum) 4 mg BUCCAL Q2H PRN PRN Reason: Nicotine Cravings Quetiapine Fumarate (Quetiapine Fumarate 50 Mg Tablet) 50 mg PO BEDTIME KIMO Trazodone HCl (Trazodone Hcl 50 Mg Tablet) 50 mg PO BEDTIME PRN PRN Reason: Insomnia Last Admin: 01/04/21 21:21 Dose: 50 mg Documented by: Trazodone HCl (Trazodone Hcl 50 Mg Tablet) 50 mg PO BEDTIME KIMO Allergies Allergies Allergy/AdvReac Type Severity Reaction Status Date / Time acetaminophen [From VICODIN] Allergy Unknown ITCHY Unverified 12/31/19 14:47 From VICODIN Allergy Unknown ITCHY Uncoded 12/31/19 14:47 Assessment & Plan Assessment & Plan (1) Opioid use disorder: Status: Acute Code(s): F11.99 - Opioid use, unspecified with unspecified opioid-induced disorder Assessment and Plan: * methadone to be increased to 25mg in AM and re-assessment to al for further titration * monitor for oversedation * RSRN to assist in coordinating connection to [facility] Greater than 50% of the session was spent on counseling and/or coordination of care PMFSH Social History Social History Household Members: Significant Other Household Members Other:: 2 boys, significant other Housing: Apartment Do you presently have visiting nurse or other home services: No Alcohol intake: unknown Patient Tobacco Use Status: Former Tobacco user Tobacco use type: Cigar Smoked in Last 30 Days: Yes e-Cigarette/Vaping Use: Currently Using Frequency of e-Cigarette/Vaping Use: Vaped few days ago Patient Interested in Nicotine Replacement: No Patient Given Instructions on How to Stop Smoking: No Second Hand Smoke Exposure: No Use of substances other than those prescribed or required for medical reasons: Unknown Substance Use Type: Crack/Cocaine, Opiates and Painkillers Substance Use Type Other:: Yesterday Substance Use Frequency: Chronic Longstanding Last Used Substance: Just Prior to Admission Last Used Substance Other:: opiate, paint killers Currently Displaying Signs/Symptoms of Drug Intoxication Withdrawal: No Any prior treatment program specific to substance use: Yes Have you been hit, kicked, punched, or otherwise hurt by someone within the past year? If so, by whom?: No Do you feel safe in your current relationship?: Yes Is there a partner from a previous relationship who is making you feel unsafe now?: No Are you made to feel afraid or neglected: No Spiritual Healthcare Practices: None [employer] Healthcare Practices: None Cultural Healthcare Practices: None Advance Directives: No Advance Directives Information Provided: No Advance Directives on File: No Healthcare Proxy: No Guardian: No Do you have thoughts of harming others: None Do you have a plan to hurt others: No Plan Recently lost weight without trying: No Eating poorly because of decreased appetite: No Nutrition Risks: No Nutritional Risk Poor oral hygiene: No service: No Sexual orientation: Did not discuss.
[2021-01-05 20:57] VITALS: BP 147/97; PULSE 112; TEMP 36.7; O2SAT 96
[2021-01-05] MEDS: QUEtiapine Fumarate 50 MG TABLET PO (21:06)
[2021-01-05 21:07] VITALS: BP 147/97; PULSE 112
[2021-01-05] MEDS: traZODone HCL 50 MG TABLET PO (21:07)
[2021-01-05] MEDS: hydrOXYzine HCL 25 MG TABLET PO (21:07)
[2021-01-06] MEDS: traZODone HCL 50 MG TABLET PO (00:20)
[2021-01-06] MEDS: LORazepam 1 MG TABLET 2 MG PO (00:20)
[2021-01-06 09:00] VITALS: BP 137/109; PULSE 112; RESP 18; TEMP 36.8; O2SAT 95
[2021-01-06] MEDS: methADONE HCl 20 MG/2 ML ORAL.CONC 25 MG PO (09:21)
--- NOTE | 2021-01-06 10:40 | P.DS_ITS ---
DS: Providers Provider Date of Service: 01/06/21 Date of admission: 01/04/21 16:00 Primary care physician: Unknown Physician Consults: 01/05/21 12:36 Consult to Physician Routine Consulting Provider: Renea Talamantes Reason for consultation: pt requesting methadone Has provider been notified: No DS: Diagnosis Discharge Diagnosis (1) Opioid use disorder: Status: Acute DS: Medications Discharge Medications Home Medications: Previous Rx's Medication Instructions Recorded quetiapine 50 mg tablet 50 mg PO BEDTIME 30 Days #30 tab 01/06/21 trazodone 50 mg tablet 100 mg PO BEDTIME 30 Days #60 tab 01/06/21 Mental Status Exam Mental Status Exam Narrative: mood excellent denies SI/HI/AVH Patient Appearance: Appropriate Patient Orientation: Person, Place, Time and Situation Level of Consciousness: Awake, Appropriate and Alert Mood Description: Calm and Appropriate Affect Description: Calm and Appropriate Ability to Follow Directions: Excellent Speech Pattern: Clear Thought Process: Intact Thought Content: positive for Linear Judgement: Fair Data Data Completed and Pending Completed studies during hospitalization [Text1]: 01/03/21 01/03/21 01/03/21 19:49 19:56 19:57 WBC 6.6 RBC 4.53 L Hgb 14.1 Hct 40.0 L MCV 88.3 MCH 31.1 MCHC 35.3 RDW 12.4 Plt Count 213 MPV 9.9 Immature Gran % (Auto) 0.6 H Neut % (Auto) 69.9 Lymph % (Auto) 19.5 L Tama % (Auto) 8.5 Eos % (Auto) 1.2 Baso % (Auto) 0.3 Lymph # (Auto) 1.3 Tama # (Auto) 0.6 Eos # (Auto) 0.1 Baso # (Auto) 0.0 Abs Immat Gran (auto) 0.04 H Absolute Neuts (auto) 4.6 Absolute Nucleated RBC 0.000 Nucleated RBC % (auto) 0.0 Sodium Potassium Chloride Carbon Dioxide Anion Gap BUN Creatinine Estim Creat Clear Calc Estimated GFR Random Glucose Calcium Total Bilirubin AST ALT Alkaline Phosphatase Total Creatine Kinase Total Protein Albumin Lipase Salicylates < 5.0 L Urine Opiates Screen Urine Fentanyl Screen Acetaminophen Ur Barbiturates Screen Ur Phencyclidine Scrn Ur Amphetamines Screen U Benzodiazepines Scrn Urine Cocaine Screen U Marijuana (THC) Screen Ethyl Alcohol COVID-19 (CLARA) Negative COVID-19 Clin Com See Note 01/03/21 01/03/21 01/03/21 19:57 19:57 19:57 WBC RBC Hgb Hct MCV MCH MCHC RDW Plt Count MPV Immature Gran % (Auto) Neut % (Auto) Lymph % (Auto) Tama % (Auto) Eos % (Auto) Baso % (Auto) Lymph # (Auto) Tama # (Auto) Eos # (Auto) Baso # (Auto) Abs Immat Gran (auto) Absolute Neuts (auto) Absolute Nucleated RBC Nucleated RBC % (auto) Sodium 144 Potassium 3.3 Chloride 111 H Carbon Dioxide 22 Anion Gap 14 BUN 7 L Creatinine 0.90 Estim Creat Clear Calc 141.9 Estimated GFR > 60 Random Glucose 129 H Calcium 8.7 Total Bilirubin 0.6 AST 46 H ALT 50 H Alkaline Phosphatase 63 Total Creatine Kinase 540 H Total Protein 7.1 Albumin 4.3 Lipase 15 Salicylates Urine Opiates Screen Urine Fentanyl Screen Acetaminophen < 1 Ur Barbiturates Screen Ur Phencyclidine Scrn Ur Amphetamines Screen U Benzodiazepines Scrn Urine Cocaine Screen U Marijuana (THC) Screen Ethyl Alcohol 218 COVID-19 (CLARA) COVID-19 [employer] Com 01/04/21 02:52 WBC RBC Hgb Hct MCV MCH MCHC RDW Plt Count MPV Immature Gran % (Auto) Neut % (Auto) Lymph % (Auto) Tama % (Auto) Eos % (Auto) Baso % (Auto) Lymph # (Auto) Tama # (Auto) Eos # (Auto) Baso # (Auto) Abs Immat Gran (auto) Absolute Neuts (auto) Absolute Nucleated RBC Nucleated RBC % (auto) Sodium Potassium Chloride Carbon Dioxide Anion Gap BUN Creatinine Estim Creat Clear Calc Estimated GFR Random Glucose Calcium Total Bilirubin AST ALT Alkaline Phosphatase Total Creatine Kinase Total Protein Albumin Lipase Salicylates Urine Opiates Screen Not Detected Urine Fentanyl Screen POSITIVE H Acetaminophen Ur Barbiturates Screen Not Detected Ur Phencyclidine Scrn Not Detected Ur Amphetamines Screen Not Detected U Benzodiazepines Scrn Not Detected Urine Cocaine Screen POSITIVE H U Marijuana (THC) Screen Not Detected Ethyl Alcohol COVID-19 (CLARA) COVID-19 [employer] Com DS: Summary Hospital Course Hospital Course: maricarmen Llanos MD 01/05 H&P: per ED Note: 40-year-old male who was brought into the emergency department by EMS and police for evaluation of attempted suicide attempt and combative behavior.? Apparently, the patient was spotted by the police on a bridge and the patient was trying to jump off the bridge.? A fisheries enforcement officer was able to stop the patient from jumping however the patient became combative and 6 officers were required to get the patient under control.? Paramedics then administered ketamine 400 mg IM.? According to the paramedics despite the ketamine the patient still was combative throughout the entire transport.? On presentation, the patient is handcuffed, he is combative, he is altered and making non verbal grunting and growling noises, he is fighting against the handcuffs.? I evaluated the patient immediately upon arrival and I determined that the patient still needed to be in restraints and needed further medications therefore with security and police assistance, the handcuffs removed, the patient was placed in 4 point restraints on the ED stretcher , he was given Haldol 5 mg IM and Benadryl 50 mg IM. on interview with MD on psych floor, pt presents with a certain insouciance.? he minimizes events and shrugs off any concern for anxiety or depression.? he expresses interest in symptomatic relief of his opioid withdrawal syndrome and aftercare with a methadone or suboxone clinic.? he states the events of the other night were just about having bought drugs from someone he'd never bought from before.? he c/o nausea, diarrhea, cramps, and vomiting.? he states he has been using opioids daily recently and cocaine not as much. Past Psychiatric History: no h/o psych hosp h/o SA x1 about 4 years ago via overdose.? per pt, this was accidental. denies any trauma Hx, h/o depression, anxiety, or psychosis. no outpt mental health Tx. Medical Evaluation Reviewed: Yes [facility] Social History: grew up in [place], [place].? lived with mother and two sisters.? 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 currently unemployed.? engaged to be .? has two sons at home, 7 yo and 2 yo. Substance History: opioids - h/o methadone maintenance, h/o suboxone maintenance.? recent heavy use. cocaine - pt reports intermittent use Trauma History: denies Plan per 01/05 Consult to Renea Talamantes: * methadone to be increased to 25mg in AM and re-assessment to eval for further titration * monitor for oversedation * RSRN to assist in coordinating connection to [facility] * 01/06: pt interested in discharge. evaluated and felt to be appropriate. pt was planning to call his fiancee to pick him up. he was interested in OTP. due to his discharging rather than remaining for methadone titration, he was dosed again today at 20 mg. per staff, pt was noted to have said he's happy to be here, and that what he had done was a cry for help. discharged to home today per his preference. Time Spent with Patient Time attestation: Total time spent providing and/or coordinating discharge services: Discharge Plan Discharge Patient Disposition: Home, Self-Care Discharge Diagnosis: Mood Disorder NOS Referrals: [facility] [Other] (Call to inquire about outpatient substance use programs and groups) T[facility] (recovery coaches) [Other] (Call or stop by drop-in center for additional recovery resources and peer support ) Jackie Palacios (therapy intake) [Other] - 01/13/21 12:20 pm (Telehealth appointment, therapist will call you) Qian Bella (psychiatrist) [Other] - 02/01/21 1:00 pm (Telehealth appointment, link will be sent to email) Qian Bella (psychiatrist) [Other] - 02/27/21 9:40 am (Telehealth appointment, link will be sent to email) [facility] [Other] - 1 Week (Dosing hours- 7am and 10am on weekends Admission Saturday 6am and 7am) [facility] [Physician] - 1 Week Discharge Medications: New trazodone 50 mg Tablet 100 mg PO BEDTIME 30 Days Qty: 60 RF: 0 quetiapine 50 mg Tablet 50 mg PO BEDTIME 30 Days Qty: 30 RF: 0 Discharge Orders: Discharge Order (Routine); Ordered 01/06/21 Ordered By: Graeme Llanos Diet: advance to usual diet Activity on Discharge: As tolerated Stand Alone Forms: Patient Portal Discharge page, Community Support Care Plan Goals: remain abstinent from substances of abuse. engage with Opioid Treatment Plan and outpatient mental health services. Health Concerns: none Plan of Treatment: seek out participation in Opioid Treatment Program. attend aftercare appointments as scheduled, take medication as prescribed. Assessment: not at imminent risk of harm to self or others. Discharge Date/Time: 01/06/21 13:10
[2021-01-06] MEDS: methADONE HCl 20 MG/2 ML ORAL.CONC PO (11:09)
--- NOTE | 2021-01-06 14:46 | MHC.RECOVRN ---
Pt signed MARINO and referral has been sent to [facility].
== END 2021-01-06 13:10 | disposition home or self-care (01) | DRG 753 ==
LOC: HO.ED 01-04 11:04 → HO.PADLT16 01-04 16:03
PROVIDERS: Admitting Provider Psychiatry & Neurology Psychiatry; Emergency Provider Emergency Medicine Emergency Medical Services; Visit Provider Psychiatry & Neurology Psychiatry
DX: F39 Unspecified mood [affective] disorder (principal); R45.851 Suicidal ideations; F11.20 Opioid dependence, uncomplicated; Z20.822 Contact with and (suspected) exposure to COVID-19; Z88.5 Allergy status to narcotic agent; Z79.899 Other long term (current) drug therapy; Z88.6 Allergy status to analgesic agent
CPT/HCPCS: 36415; 80053; 80143; 80179; 80307; 82077; 82550; 83690; 85025; 87635; 93005; 99285; J1200